=== PATIENT | male | born 1960 | race Caucasian/White ===

== ENCOUNTER → 2018-11-05 | Day surgery (SDC) | payer OTHER ==
[2018-11-03 10:27] LABS: BASOPHILS % 0.5 % (0.0-1.0); EOSINOPHILS # (AUTO) 0.2 (0.0-0.4); EOSINOPHILS % 2.4 % (0.0-6.0); HEMATOCRIT 41.6 % (38.2-49.6); HEMOGLOBIN 13.7 g/dL (14.0-18.0); LYMPHOCYTES # (AUTO) 1.8 (1.0-3.2); LYMPHOCYTES % 26.4 % (18.0-39.1); MEAN CORPUSCULAR HEMOGLOBIN 30.1 pg (28-32); MEAN CORPUSCULAR HGB CONC 32.9 g/dL (31-35); MEAN CORPUSCULAR VOLUME 91.4 fL (81-99); MONOCYTES # (AUTO) 0.6 (0.2-0.8); MONOCYTES % 9.5 % (4.4-11.3); NEUTROPHILS # (AUTO) 4.1 (2.1-6.9); NEUTROPHILS % 60.9 % (38.7-80.0); PLATELET COUNT 172 x10e3/uL (140-360); RED BLOOD COUNT 4.55 x10e6/uL (4.3-5.7); RED CELL DISTRIBUTION WIDTH 13.2 % (11.7-14.4)
[2018-11-03 10:39] LABS: ALANINE AMINOTRANSFERASE 19 IU/L (0-55); ALBUMIN 3.4 g/dL (3.5-5.0); ALKALINE PHOSPHATASE 80 IU/L (40-150); ANION GAP 12.5 mmol/L (8-16); BLOOD UREA NITROGEN 15 mg/dL (7-26); BUN/CREATININE RATIO 14 (6-25); CARBON DIOXIDE 27 mmol/L (22-29); CHLORIDE 102 mmol/L (98-107); CREATININE, SERUM 1.05 mg/dL (0.72-1.25); EST GLOMERULAR FILTRATION RATE > 60 ML/MIN (60-); GLUCOSE 128 mg/dL (74-118); POTASSIUM 4.5 mmol/L (3.5-5.1); SODIUM 137 mmol/L (136-145)
[2018-11-05] VITALS (11 sets, daily range): BP systolic 96–120; BP diastolic 57–82
[~2018-11-05] VITALS: Ht 193 cm; Wt 117.9 kg
[~2018-11-05] MED LIST: ALPRAZOLAM 0.5 MG TAB ONE; AMIODARONE HCL200 MG PO; ASPIRIN 325 MG TAB ONE; ASPIRIN81 MG PO; ATORVASTATIN CA10 MG PO; ATORVASTATIN CA20 MG PO; BRILINTA90 MG PO; BUPROPION HCL100 MG PO; CLOPIDOGREL75 MG PO; CRESTOR10 MG PO; DIOVAN80 MG PO; DIPHENHYDRAMINE HCL 25 MG CAP ONE; FENTANYL CITRATE/PF 100MCG/2 ML INJ ONE; GLYXAMBI PO; HEPARIN SOD (PORCINE) 1000 UNIT/ML 30ML ONE; HEPARIN SOD/SOD CHLORIDE 2,000 ML ONE; HUMALOG MI100 UNIT/4 SQ; IOPAMIDOL 370 MG/ML 200 ML INFUS..BTL INJ ONE; LIDOCAINE HCL 2% LOCAL 20 ML VIAL ONE; METFORMIN HCL500 MG PO; METOPROLOL SUCC25 MG PO; METOPROLOL TART25 MG PO; MIDAZOLAM HCL 2 MG/2 ML VIAL ONE; NITROSTAT0.4 MG PO; NOVOLOG MI100 UNITS/ SQ; ONGLYZA5 MG PO; PAROXETINE HCL20 MG PO; PRASUGREL 10 MG TAB ONE; RANEXA500 MG PO; SODIUM CHLORIDE 0.9% 1000ML 1,000 ML ONE; TRADJENTA5 MG PO; TRESIBA SQ; TRULICITY INJ; Toujeo SQ; VERAPAMIL HCL 2.5 MG/ML 2 ML VIAL ONE; eliquis PO
--- NOTE | 2018-11-05 17:00 | NUR ---
bedside report received from Vicente Geiger RN. Alert oriented and appropriate, PERRLA, respirations even and unlabored to room air. Pulses x4 extremities equal and strong. TR band to right wrist w/ 14ml to bladder. Cap fill brisk < 3 sec. + neurovascular function. Skin warm and dry integrity appears intact. IV 20g to left forearm presents healthy w/o s/s of infiltration or complaint. Abdomen soft and supple. pt offered toileting, denies need to urinate or defecate. Personal affects with patient. Family at beside. Pt and family verbalizes understanding of POC. telemetry in use and VS wnl trend for pt. Currently w/o complaint of pain or need. -cgf
--- NOTE | 2018-11-05 17:50 | NUR ---
TR band successfully removed w/o incident. education performed. aseptic dressing applied. pt ambulated to bathroom w/o incident. No gross issues. + neurovascular function.
--- NOTE | 2018-11-05 18:15 | NUR ---
Pt meets DC criteria. right radial assessed for s/s of complication and presence of hematoma. overall skin warm, dry, no discolor, and pulses present. IV removed from left forearm. Distal tip appears intact. VS WNL. Pt denies pain, sob, or need at this time. Family at bedside for discharge instructions and to drive pt home. Review of discharge paperwork and follow up instructions. verbalized understanding. Pt to wheelchair and transported to front of hospital. Transferred to private vehicle under own strength w/o incident with DC paperwork in hand. - cgf
--- NOTE | 2018-11-07 13:12 | Operative Report ---
DATE OF PROCEDURE: 11/05/2018 SURGEON: Akbar Denney MD INDICATION: Coronary artery disease with abnormal stress test. PROCEDURES PERFORMED: 1. Left heart catheterization, selective coronary angiography. 2. Stent placement in the circumflex artery. 3. Deployment of right wrist TR band. COMPLICATIONS: None. RECOMMENDATIONS: Dual antiplatelet therapy for life. DESCRIPTION OF PROCEDURE: Access obtained in the right radial artery. A 5-Armenian sheath was placed. Angiomax administered for anticoagulation. Circumflex proximal 50% stenosis, 90% in-stent restenosis of previously placed stent in the circumflex artery. Left anterior descending artery stent was patent. Right coronary artery proximal 50%, distal stent was patent. A decision was made to intervene on the circumflex artery. A short wire was advanced across the lesion for support. Predilatation with 2 mm balloon following which a single 3.0 x 26 mm Resolute Benji drug-eluting stent was deployed at 12 atmospheres. Excellent end result, less than 10% residual stenosis, ISAAC-3 flow. No complications. Guidewire and sheath were removed. TR band applied. The patient was discharged home same day. Akbar Denney MD [facility]/MODL /[id number]
== END | disposition home or self-care (01) ==
LOC: CATH LAB 11:02
PROVIDERS: ATTEND Internal Medicine Interventional Cardiology
DX: I25.118 Atherosclerotic heart disease of native coronary artery with other forms of angina pectoris (principal); R94.39 Abnormal result of other cardiovascular function study; I48.91 Unspecified atrial fibrillation; Z01.812 Encounter for preprocedural laboratory examination; Z79.84 Long term (current) use of oral hypoglycemic drugs; Z79.02 Long term (current) use of antithrombotics/antiplatelets; Z79.82 Long term (current) use of aspirin; Z79.4 Long term (current) use of insulin; Z95.5 Presence of coronary angioplasty implant and graft
CPT/HCPCS: 36415; 80053; 85025; 92928; 93454; C1725; C1769; C1874; C1887; J1644; J2001; J2250; J3010; J7030; Q9967